=== PATIENT | female | born 1985 | race Caucasian/White ===

== ENCOUNTER 2021-12-22 14:53 | Outpatient (CLI) | payer SELFPAY | END 2021-12-22 14:54 | disposition home or self-care (01) | LOC: CSHLAB 14:53 | PROVIDERS: ATTEND Family Medicine | DX: Z20.822 Contact with and (suspected) exposure to COVID-19 (principal) | CPT/HCPCS: 87811 ==

== ENCOUNTER 2021-12-25 18:00 | Inpatient (IN) | payer OTHER, SELFPAY ==
[~2021-12-25 18:00] MED LIST: Bupivacaine/Epinephrine 0.25% 30 ML VIAL ONE; Lidocaine 2% MPF 10 ML AMP (For Epidural Use) ONE; ePHEDrine Sulfate 50 MG/10 ML VIAL ONE
[2021-12-25] MEDS ORDERED: Fentanyl 100 MCG/2 ML VIAL SLOW IVP PRN (19:29)
[2021-12-25] MEDS ORDERED: Ondansetron PF 4 MG/2 ML Vial IVP PRN (19:29)
[2021-12-25] MEDS ORDERED: HYDROcodone/Acetaminophen 5/325 mg Tablet PO PRN (19:29)
[2021-12-25] MEDS ORDERED: Promethazine HCl 25 MG/ML VIAL IM PRN (19:29)
[2021-12-25] MEDS ORDERED: hydrALAZINE 20 MG/ML VIAL SLOW IVP PRN (19:29)
[2021-12-25] MEDS ORDERED: Carboprost 250 MCG/ML AMP IM PRN (19:29)
[2021-12-25] MEDS ORDERED: Lidocaine 1% (PF) 30 ML VIAL SC PRN (19:29)
[2021-12-25] MEDS ORDERED: Acetaminophen 500 MG TAB PO PRN (19:29)
[2021-12-25] MEDS ORDERED: Misoprostol 200 MCG TAB PR PRN (19:29)
[2021-12-25] MEDS ORDERED: Ibuprofen 800 MG TAB PO PRN (19:29)
[2021-12-25] MEDS ORDERED: Methylergonovine 0.2 MG/ML VIAL IM PRN (19:29)
[2021-12-25] MEDS ORDERED: Lactated Ringer's 1,000 ML IV SCH (19:30)
[2021-12-25] MEDS ORDERED: NS w/ Oxytocin 30 units 500 ML IV SCH ×2 (19:30)
[2021-12-25 23:50] LABS: Mean Corpuscular HGB CONC 31.1 g/dL (32.0-36.0); Mean Corpuscular Hemoglobin 23.4 pg (27.0-33.0); Mean Corpuscular Volume 75.3 fl (81.6-98.3); Mean Platelet Volume 10.1 fl (7.4-10.4); Platelet Count 320 10x3/uL (150-450); RBC Distribution Width 15.7 % (11.5-14.5); White Blood Cell (WBC) Count 8.4 10x3/uL (3.5-10.5)
[2021-12-26] MEDS ORDERED: Misoprostol 100 MCG TAB VAG SCH
[2021-12-26 00:22] LABS: HBSAg Index 0.22 S/CO (0-0.99); Hep B Surf Ag Non-Reactive S/CO (NonReactive); Syphilis Antibody Nonreactive (Nonreactive); Syphilis Antibody Index 0.04 S/CO (<1.00 Non-Reactive)
[2021-12-26 01:32] LABS: HIV (1/2) Antibody/Antigen Non-Reactive (NonReactive); HIV 1/2 INDEX 0.12 S/CO (<1.00)
[2021-12-26] MEDS ORDERED: Fentanyl 2 mcg/Bup 0.1% Cadd 100 ML ONE (04:15)
[2021-12-26] MEDS ORDERED: Ondansetron PF 4 MG/2 ML Vial IVP PRN ×2 (05:16→11:52)
[2021-12-26] MEDS ORDERED: diphenhydrAMINE 50 MG/ML VIAL IVP PRN ×2 (05:16→11:52)
[2021-12-26] MEDS ORDERED: Lactated Ringer's 500 ML IV PRN (05:16)
[2021-12-26] MEDS ORDERED: Acetaminophen 325 MG TAB PO PRN ×2 (05:16→13:08)
[2021-12-26] MEDS ORDERED: Moisturizing Cream (Eucerin) 113 GM JAR TOP PRN ×2 (05:16→11:52)
[2021-12-26] MEDS ORDERED: Naloxone HCl 0.4 mg/ml Vial IVP PRN ×4 (05:16→11:52)
[2021-12-26] MEDS ORDERED: ePHEDrine Sulfate 50 MG/10 ML VIAL SLOW IVP PRN (05:16)
[2021-12-26] MEDS ORDERED: Promethazine HCl 25 MG/ML VIAL IM PRN ×2 (05:16→11:52)
[2021-12-26] MEDS ORDERED: Communication Order-Pharmacy FS SCH ×2 (05:30→12:00)
[2021-12-26] MEDS ORDERED: Fentanyl 2 mcg/Bupivacaine 0.1% Cassette 100 ML EPIDURAL SCH (05:30)
[2021-12-26] MEDS ORDERED: CEFAZOLIN 2 GM VIAL ONE (10:21)
[2021-12-26] MEDS ORDERED: Azithromycin 500 MG VIAL ONE (10:22)
[2021-12-26] MEDS ORDERED: Ondansetron PF 4 MG/2 ML Vial ONE (10:44)
[2021-12-26] MEDS ORDERED: Dexamethasone 4 mg/ml Vial ONE (10:44)
[2021-12-26] MEDS ORDERED: Oxytocin 10 UNITS/ML VIAL ONE (10:45)
[2021-12-26] MEDS ORDERED: Morphine PF 10 MG/10 ML VIAL ONE (11:28)
[2021-12-26] MEDS ORDERED: Ketorolac Tromethamine 30 MG/ML VIAL ONE (11:42)
[2021-12-26 11:46] LABS: RapidComm Collect By CBN
[2021-12-26 11:49] LABS: RapidComm Collect By CBN; pH (Cord, venous) 7.332 (7.250-7.350)
[2021-12-26] MEDS ORDERED: Promethazine HCl 25 MG SUPP PR PRN (11:52)
[2021-12-26] MEDS ORDERED: HYDROmorphone 2 MG/ML VIAL SLOW IVP PRN (11:52)
[2021-12-26] MEDS ORDERED: Meperidine HCl/PF 25 MG/ML VIAL SLOW IVP PRN (11:52)
[2021-12-26] MEDS ORDERED: Ketorolac Tromethamine 30 MG/ML VIAL IVP PRN (11:52)
[2021-12-26] MEDS ORDERED: Fentanyl 100 MCG/2 ML VIAL SLOW IVP PRN (11:52)
[2021-12-26] MEDS ORDERED: Ondansetron HCl/PF 4 MG/2 ML Vial IVP PRN (11:52)
[2021-12-26] MEDS ORDERED: Naloxone HCl 0.4 mg/ml Vial IV PRN (11:52)
[2021-12-26] MEDS ORDERED: Ketorolac Tromethamine 30 MG/ML VIAL IVP SCH (12:00)
[2021-12-26] MEDS ORDERED: Bisacodyl 10 MG SUPP PR PRN (13:08)
[2021-12-26] MEDS ORDERED: Simethicone Chewable 80 MG TAB PO PRN (13:08)
[2021-12-26] MEDS ORDERED: Boostrix 0.5 ML (Tdap) VIAL (>/=7 yrs of age) IM ONE (13:08)
[2021-12-26] MEDS ORDERED: Lanolin Ointment 7 GM TUBE TOP PRN (13:08)
[2021-12-26] MEDS ORDERED: hydrALAZINE 20 MG/ML VIAL SLOW IVP PRN (13:08)
[2021-12-26] MEDS ORDERED: Morphine 2 MG/ML VIAL SLOW IVP SCH (14:00)
[2021-12-26] MEDS: Ibuprofen 800 MG TAB PO SCH ×2 (14:06→21:42)
[2021-12-26] MEDS ORDERED: NS w/ Oxytocin 30 units 500 ML ONE (14:19)
[2021-12-26] MEDS: Ketorolac Tromethamine 30 MG/ML VIAL IVP SCH ×2 (16:19→21:42)
[2021-12-26] MEDS: Docusate 100 MG CAP PO SCH (21:42)
[2021-12-27] MEDS: Ketorolac Tromethamine 30 MG/ML VIAL IVP SCH ×4 (03:23→22:00)
[2021-12-27 06:07] LABS: Hemoglobin 8.2 g/dL (12.0-15.5); Mean Corpuscular HGB CONC 30.9 g/dL (32.0-36.0); Mean Corpuscular Hemoglobin 23.8 pg (27.0-33.0); Platelet Count 234 10x3/uL (150-450); RBC Distribution Width 15.9 % (11.5-14.5); Red Blood Cell (RBC) Count 3.44 10x6/uL (3.90-5.03); White Blood Cell (WBC) Count 10.4 10x3/uL (3.5-10.5)
[2021-12-27] MEDS: Ibuprofen 800 MG TAB PO SCH ×3 (06:48→22:07)
[2021-12-27] MEDS: HYDROcodone/Acetaminophen 5/325 mg Tablet PO PRN ×4 (09:03→22:07)
[2021-12-27] MEDS: Docusate 100 MG CAP PO SCH ×2 (09:03→22:00)
[2021-12-28] MEDS: Ketorolac Tromethamine 30 MG/ML VIAL IVP SCH ×2 (04:00→09:38)
[2021-12-28] MEDS: Ibuprofen 800 MG TAB PO SCH ×2 (05:30→13:45)
[2021-12-28] MEDS: HYDROcodone/Acetaminophen 5/325 mg Tablet PO PRN ×2 (05:30→13:44)
[2021-12-28] MEDS: Docusate 100 MG CAP PO SCH (08:29)
[2021-12-28 08:37] VITALS: BP 103/57; TEMP 98.3
== END 2021-12-28 13:55 | disposition home or self-care (01) | DRG 788 ==
LOC: CSHLD 22:22 → CSHTELE 12-26 13:45 → CSHPP 12-26 14:03
PROVIDERS: ADMIT Family Medicine; ATTEND Family Medicine
PROC: 10H07YZ Insertion of Other Device into Products of Conception, Via Natural or Artificial Opening (ICD-10-PCS; principal; 2021-12-26)
PROC: 10D00Z1 Extraction of Products of Conception, Low, Open Approach (ICD-10-PCS; 2021-12-26)
PROC: 3E0P7VZ Introduction of Hormone into Female Reproductive, Via Natural or Artificial Opening (ICD-10-PCS; 2021-12-26)
PROC: 10907ZC Drainage of Amniotic Fluid, Therapeutic from Products of Conception, Via Natural or Artificial Opening (ICD-10-PCS; 2021-12-26)
PROC: 3E033VJ Introduction of Other Hormone into Peripheral Vein, Percutaneous Approach (ICD-10-PCS; 2021-12-26)
DX: O48.0 Post-term pregnancy (principal); O76 Abnormality in fetal heart rate and rhythm complicating labor and delivery; O90.81 Anemia of the puerperium; D50.8 Other iron deficiency anemias; Z98.890 Other specified postprocedural states; Z3A.41 41 weeks gestation of pregnancy; Z37.0 Single live birth; Z88.2 Allergy status to sulfonamides; Z88.8 Allergy status to other drugs, medicaments and biological substances
CPT/HCPCS: 36415; 51702; 82805; 85027; 86780; 86850; 86900; 86901; 87340; 87389; J0456; J1100; J1885; J2270; J2274; J2405; J2590